=== PATIENT | male | born 2000 | race Hispanic/Latino ===

== ENCOUNTER 2023-12-22 09:46 | Emergency (ER) | payer OTHER ==
[2023-12-22] MEDS ORDERED: Bacitracin 1 PK ONE (10:39)
[2023-12-22] MEDS ORDERED: Boostrix 0.5 ML (Tdap) VIAL (>/=7 yrs of age) ONE (10:39)
== END 2023-12-22 11:08 | disposition home or self-care (01) ==
LOC: NAV ERS 09:46
DX: S61.210A Laceration without foreign body of right index finger without damage to nail, initial encounter (principal); R03.0 Elevated blood-pressure reading, without diagnosis of hypertension; Z23 Encounter for immunization; W26.8XXA Contact with other sharp object(s), not elsewhere classified, initial encounter
CPT/HCPCS: 12002; 90471; 90715